=== PATIENT | female | born 1995 | race African-American/Black ===

== ENCOUNTER 2016-09-11 22:33 | Emergency (ER) | payer OTHER ==
[2016-09-12 00:30] LABS: URINE SOURCE CLEAN CATCH
[2016-09-12 00:34] LABS: BASOPHIL% 0.3 % (0-2.5); EOSINOPHIL# 0.1 X10e3 (0-0.7); EOSINOPHIL% 0.6 % (0.0-7.0); HEMATOCRIT 37.4 % (35.0-45.0); HEMOGLOBIN 12.1 gm/dL (12.0-16.0); LYMPHOCYTE# 2.5 X10e3 (1.0-3.5); LYMPHOCYTE% 24.2 % (17.0-45.0); MEAN CELL VOLUME 81.5 FL (83-96); MEAN CORPUSCULAR HEMOGLOBIN 26.3 PG (28-34); MEAN CORPUSCULAR HGB CONC 32.3 g/dL (30-36); MONOCYTE# 0.8 X10e3 (0-1.0); MONOCYTE% 7.3 % (3.0-12.0); NEUTROPHIL% 67.6 % (40-75); PLATELET COUNT 165 X10e3 (140-420); RED CELL DISTRIBUTION WIDTH 13.6 % (11.0-15.5); WHITE BLOOD COUNT 10.3 X10e3 (4.0-10.5)
[2016-09-12 00:35] LABS: URINE APPEARANCE CLEAR; URINE BILIRUBIN NEG (NEG); URINE BLOOD 3+ (NEG); URINE COLOR YELLOW; URINE GLUCOSE NEG (NEG); URINE KETONE 3+ (NEG); URINE LEUKOCYTE ESTERASE NEG (NEG); URINE NITRATE NEG (NEG); URINE PH 6.5 (5-8); URINE PROTEIN NEG (NEG)
[2016-09-12 00:35] LABS: DIFF IND NO
[2016-09-12 00:39] LABS: URINE BACTERIA AUWI NEG (NEGATIVE); URINE SQUAMOUS EPITHELIAL CELL NONE SEEN /[HPF]; UWBCS1 AUWI 0-2 (0-5)
[2016-09-12 00:40] LABS: CULTURE INDICATED? NO
[2016-09-12 00:47] LABS: BETA-HCG SCREEN-PREGNANCY POS
[2016-09-12 00:57] LABS: ALBUMIN SERUM 4.3 g/dL (3.5-5.0); BILIRUBIN, DIRECT 0.2 mg/dL (0.0-0.2); BILIRUBIN,INDIRECT 0.7 mg/dL (0.0-0.9); BILIRUBIN,TOTAL 0.9 mg/dL (0.2-2.0); BUN/CREATININE RATIO 11.25; CALCIUM SERUM 9.1 mg/dL (8.4-10.2); CREATININE SERUM 0.8 mg/dL (0.6-1.4); GLOM FILT RATE Estimated 122.3 mL/min (>60); POTASSIUM 3.4 mmol/L (3.5-5.1); PROTEIN TOTAL SERUM 7.3 g/dL (6.0-8.3)
[2016-09-12 01:27] LABS: BETA-HCG QUANT 2145 mIU/mL
[2016-09-15 10:13] LABS: CHLAMYDIA TRACH Not Detected (Not Detected); N GONOR Not Detected (Not Detected)
== END 2016-09-12 03:20 | disposition home or self-care (01) ==
LOC: CFTX 22:33 → CED 22:33 → CFTX 23:34
PROVIDERS: Physician Assistant Medical
DX: O20.0 Threatened abortion (principal)
CPT/HCPCS: 36415; 80048; 80076; 81003; 84702; 84703; 85025; 86900; 86901; 87491; 87591; 87808; 87905; 99284